=== PATIENT | male | born 1970 | race Caucasian/White ===

== ENCOUNTER 2023-07-04 04:46 | Emergency (ER) | payer SELFPAY ==
[2023-07-04 05:04] VITALS: BMI 33.6
[2023-07-04] MEDS ORDERED: clonazePAM 2 MG TABLET ONE (05:44)
[2023-07-04] MEDS ORDERED: traZODone HCL 100 MG TABLET (FP) ONE (05:44)
[2023-07-04] MEDS ORDERED: traZODone HCL 50 MG TABLET (FP) ONE (05:44)
[2023-07-04] MEDS: traZODone HCL 150 MG TABLET PO ONE (05:48)
[2023-07-04] MEDS: clonazePAM 2 MG TABLET PO ONE (05:48)
[2023-07-04 06:37] LABS: BASO % 0.9 % (0-2.0); EOS % 3.4 % (0-4.5); HEMATOCRIT 40.5 % (35.4-49); HEMOGLOBIN 13.7 GM/dL (11.7-16.9); LYMPH % 24.8 % (8-40); MCH 30.6 pg (25.7-33.7); MCHC 33.9 g/dl (32.0-35.9); MEAN CELL VOLUME 90.2 fl (80-96); MEAN PLT VOLUME 7.9 fl (7.5-11.1); MONO % 7.9 % (3.8-10.2); PLATELET COUNT 207 10^3/uL (134-434); RDW 14.6 % (11.9-15.9); WHITE BLOOD COUNT 7.5 K/mm3 (4.0-10.0)
[2023-07-04 06:40] LABS: POTASSIUM 4.2 mmol/L (3.5-5.1)
[2023-07-04 06:42] LABS: CALCIUM 9.3 mg/dL (8.5-10.1)
[2023-07-04 06:43] LABS: BLOOD UREA NITROGEN 19.1 mg/dL (7-18)
[2023-07-04 06:46] LABS: CREATININE 1.3 mg/dL (0.55-1.3)
[2023-07-04 06:47] LABS: BILIRUBIN,TOTAL 0.6 mg/dL (0.2-1); TOT PROT 7.4 g/dl (6.4-8.2)
[2023-07-04 06:56] VITALS: PULSE 82
[2023-07-04 06:56] LABS: INR 1.19 (0.83-1.09); PROTHROMBIN TIME (PATIENT) 13.4 SEC (9.7-13.0)
[2023-07-04 06:59] LABS: ACTIVATED PTT 31.2 SECONDS (25.2-36.5)
[2023-07-04 10:20] VITALS: BP 145/95; RESP 20; TEMP 98.2
== END 2023-07-04 10:20 | disposition home or self-care (01) ==
LOC: JER 04:46
DX: R07.2 Precordial pain (principal); R06.02 Shortness of breath; R42 Dizziness and giddiness; R05.3 Chronic cough; R00.0 Tachycardia, unspecified; Z20.822 Contact with and (suspected) exposure to COVID-19
CPT/HCPCS: 0241U-QW; 36415; 71046-TC-FY; 80053; 84484; 85025; 85610; 85730; 93005; 93010; 99285-25